=== PATIENT | female | born 1990 | race Caucasian/White ===

== ENCOUNTER 2017-10-01 17:35 | Inpatient (IN) ==
[2017-10-01] MEDS ORDERED: Ondansetron 4 MG/2 ML VIAL IVP PRN (19:23)
[2017-10-01] MEDS ORDERED: Naloxone 0.4 MG/ML INJ IVP PRN (19:23)
[2017-10-01] MEDS ORDERED: *HR* Meperidine 25 MG/ML SYRINGE IVP PRN (19:27)
[2017-10-01] MEDS ORDERED: 0.9 % Sodium Chloride 1,000 ML IVC SCH (19:30)
--- NOTE | 2017-10-01 19:33 | Internal Med History&Physical ---
<Willard Walton H - Last Filed: 10/01/17 20:09> Date of Encounter: 10/01/17 Internal Medicine - H&P: HPI History of present illness: Ms. Rossi is a 27 year old female Internal Medicine - H&P: Meds No Known Home Drugs 10/01/17 [History] 3 Allergy/AdvReac Type Severity Reaction Status Date / Time Penicillins [PCN] Allergy Rash Verified 10/01/17 13:06 All Systems PM: A 10-system review of systems was performed and is negative for pertinent findings except as documented above in the HPI. - Attending Attestation 1. Acute pancreatitis Lipase is normal, CT scan shows possible cholelithiasis and possible acute pancreatitis, possibly some enteritis which was no reported but the patient is not having any diarrhea at the moment Nothing by mouth, IV fluids, meperidine IV as needed Order MRCP to consider possible mass Lipid Panel Recheck lipase in the morning 2. Intractable nausea and vomiting secondary to pancreatitis 3. Dehydration secondary to nausea and vomiting 4. Leukocytosis, nonspecific likely related to acute pancreatitis 5. Mild hyponatremia likely related to vomiting Protonix IV for GI prophylaxis and subcutaneous heparin for DVT prophylaxis. The patient will be admitted as inpatient, expected to stay more than 2 midnights. Full code. Time spent on this admission 40 minutes. I have personally performed a face to face evaluation on this patient. I have reviewed and agree with the care plan. History and Exam by me shows: <RandallColin J - Last Filed: 10/01/17 21:23> Date of Encounter: 10/01/17 Time of Encounter: 19:30 Assessment and Plan (1) Pancreatitis Current visit: Yes Status: Acute 3 history of intractable nausea and vomiting and abdominal pain. CT scan reveals possible cholelithiasis and inflammation of the pancreatic head concerning for. Additionally some enteritis is noted the patient is denying any diarrhea. -IV fluid -Strict nothing by mouth -Demerol for pain -MRI, MRCP due to inflammation of the pancreatic head without elevation of lipase -Repeat lipase in the morning; call generation engineering technologist workers compensation claims specialist if lipase elevated to do MRI/MRCP first thing in the morning -Lipid panel now -Recheck lipase in the morning -Antiemetics -CBC D, CMP in the a.m. -Continuous tele Qualifiers: Chronicity: acute Pancreatitis type: unspecified pancreatitis type Acute pancreatitis complication: unspecified Qualified Code(s): K85.90 - Acute pancreatitis without necrosis or infection, unspecified (2) Abdominal pain Current visit: Yes Status: Acute In the setting of acute pancreatitis. Abdomen does not appear acute to examination or per CT. See plan above Qualifiers: Abdominal location: right upper quadrant Qualified Code(s): R10.11 - Right upper quadrant pain (3) Cholelithiasis Current visit: Yes Status: Acute Cholelithiasis without obvious obstruction. MRI and MRCP for further evaluation Qualifiers: Cholelithiasis location: gallbladder Cholecystitis presence: without cholecystitis Biliary obstruction: without biliary obstruction Qualified Code(s): K80.20 - Calculus of gallbladder without cholecystitis without obstruction (4) Intractable nausea and vomiting Current visit: Yes Status: Acute Intractable nausea and vomiting secondary to pancreatitis -IVF -Anti-emetics Qualifiers: Vomiting type: unspecified Qualified Code(s): R11.2 - Nausea with vomiting , unspecified (5) Dehydration Current visit: Yes Status: Acute In the setting of pancreatitis. See plan above (6) DVT prophylaxis Current visit: Yes Status: Acute Heparin 5000 units SC BID Internal Medicine - H&P: HPI Chief complaint: N/V with abdominal pain Admitted From: Home Plans for Post Hospital Care: Home History of present illness: Ms. Rossi is a 27 year old female with no prior past medical history presents to [facility] today from [facility] with intractable nausea and vomiting and abdominal pain for the last 3 days. She is reporting RUQ abdominal pain that feels sharp and is 8/10. The abdominal pain has only improved slightly over the last few days. She states that she has had a decrease in oral intake and has only been able to drink apple juice. Her urinary output has also decreased. She denies any fevers, chills, chest pain, constipation or shortness of breath. CT scan reveals inflammation of the pancreatic head. Past Med Surg Social Fam HX - Past Medical History Medical history: no medical history Psychiatric history: no psych history - Past Surgical History Surgical History: no surgical history - Social History Smoking Status: Never smoker Smokeless Tobacco Status: No Alcohol use: none Drug use: none - Additional Family History Additional family history: Noncontributory All Systems PM: A 10-system review of systems was performed and is negative for pertinent findings except as documented above in the HPI. - Constitutional Constitutional: as per HPI - EENT Eyes: no change in vision, no discharge, no pain, no photophobia Ears: no ear discharge, no ear pain, no tinnitus Nose, mouth and throat: no dysphagia, no nasal discharge, no neck pain, no sore throat - Cardiovascular Cardiovascular ROS IM: no chest pain, no diaphoresis, no dyspnea, no lightheadedness, no palpitations, no syncope - Respiratory Respiratory: no cough, no dyspnea, no wheezing, no excessive phlegm production - Gastrointestinal Gastrointestinal: as per HPI - Genitourinary Genitourinary: no change in urinary stream, no dysuria, no flank pain, no hematuria - Musculoskeletal Musculoskeletal ROS IM: no numbness, no tingling - Integumentary Integumentary IM: no rash, no unusual bruising - Neurological Neurological ROS: no confusion, no convulsions, no focal weakness, no numbness, no tingling, no tremor(s) - Head Head exam: Present: atraumatic, normocephalic - Eye Eye exam: Present: PERRL, conjuntiva pink, sclera anicteric Pupils: Present: PERRL - Neck Neck exam general surgery: Present: supple, trachea midline. Absent: lymphadenopathy - Respiratory Respiratory exam: Present: CTAB. Absent: accessory muscle use, rales, rhonchi, wheezes - Cardiovascular Cardiovascular exam: Present: RRR, +S1, +S2. Absent: diastolic murmur, gallop, rubs, systolic murmur - GI/Abdominal GI/Abdominal exam: Present: normal bowel sounds, soft, tenderness (RUQ, EPIGASTRIC), no peritoneal signs. Absent: distended - Extremities Exam Extremities exam: Present: warm, radial pulses palpable and symmetrical. Absent : calf tenderness, cyanotic, pedal edema - Neurological Exam Neurological exam: Present: oriented X3. Absent: facial droop, speech deficit - Skin Skin exam: Present: dry, intact Internal Med - H&P Results - Diagnostic Studies CT scan - abdomen Status: image reviewed by me Additional comments: Lower Chest: Clear lungs. Organs: Cholelithiasis. Liver, adrenals and spleen are normal. Moderate to severe stranding surrounding the pancreatic head and tracking inferiorly into the mesentery. No drainable fluid collection. GI/Bowel: No evidence of bowel obstruction. Normal appendix. Small hiatal hernia. Pelvis: Bladder and reproductive organs are unremarkable. Peritoneum/Retroperitoneum: Duplicated IVC. No evidence of AAA or lymphadenopathy. Bones/Soft Tissues: No suspicious osseous lesions.
[2017-10-01 21:35] LABS: Chol/HDL Ratio 3.5 (0-4.9)
[2017-10-01] MEDS: *HR* Meperidine 25 MG/ML SYRINGE IVP PRN (23:17)
[2017-10-01] MEDS: 0.9 % Sodium Chloride 1,000 ML IVC SCH (23:17)
[2017-10-02] MEDS: 0.9 % Sodium Chloride 1,000 ML IVC SCH ×3 (04:26→20:33)
[2017-10-02] MEDS: *HR* Meperidine 25 MG/ML SYRINGE IVP PRN (04:46)
[2017-10-02 07:42] LABS: Alanine Aminotransferase 35 Units/L (7-52); Albumin 3.2 g/dL (3.5-5.7); Albumin/Globulin Ratio 1.3 (1.1-2.2); Alkaline Phosphatase 80 Units/L (34-104); Aspartate Amino Transferase 9 Units/L (13-39); BUN/Creatinine Ratio 13 (6-26); Bilirubin,Total 0.6 mg/dL (0.3-1.0); Blood Urea Nitrogen 7 mg/dL (6-20); Calcium 8.1 mg/dL (8.6-10.3); Carbon Dioxide 24 mEq/L (23-29); Chloride 108 mEq/L (98-107); Globulin 2.4 g/dL (2.4-3.5); Glucose 90 mg/dL (70-105); Osmolality,Calculated 282 (280-300); Potassium 3.6 mEq/L (3.5-5.1); Sodium 137 mEq/L (136-145); Total Protein 5.6 g/dL (6.4-8.9); eGFR For African Americans > 60 (> 60); eGFR For Non-African Americans > 60 (> 60)
[2017-10-02 07:52] LABS: Basophils # 0.1 K/mcL (0.0-0.2); Basophils % 0.4 %; Eosinophils # 0.3 K/mcL (0.0-0.6); Eosinophils % 2.3 %; Hematocrit 35.3 % (35.3-44.9); Hemoglobin 11.4 g/dL (11.5-15.4); Immature Granulocytes % 0.4 % (0-4); Lymphocytes # 2.1 K/mcL (0.6-4.6); Lymphocytes % 18.1 %; Mean Corpuscular HGB Conc 32.3 g/dL (31.6-35.5); Mean Corpuscular Hemoglobin 30.6 pg (28.0-33.3); Mean Corpuscular Volume 94.9 fL (83.0-100.0); Mean Platelet Volume 9.4 fL (9.4-12.4); Monocytes # 0.9 K/mcL (0.0-1.3); Monocytes % 8.2 %; Platelet Count 256 K/mcL (140-400); Red Blood Count 3.72 M/mcL (3.82-4.97); Red Cell Distribution Width 13.3 % (11.5-14.5); Segmented Neutrophils % 70.6 %
[2017-10-02] MEDS: *HR* OxyCODONE Immed Rel 5 MG TABLET PO PRN ×3 (08:50→19:32)
--- NOTE | 2017-10-02 13:47 | Internal Med Progress Note ---
Date of Encounter: 10/02/17 Time of Encounter: 08:00 - Assessment and plan (1) Acute pancreatitis Current Visit: Yes Status: Acute Assessment and plan: Mostly viral pathology FLP - normal However CT of Abd showed cholelithiasis / no ductal dilation Normal LFT's will check U/S of RUQ no need of MRI at this stage started her on full liquid diet PO analgesics PRN Symptomatic and supportive care Qualifiers: Qualified Code(s): K85.90 - Acute pancreatitis without necrosis or infection , unspecified (2) Cholelithiasis Current Visit: Yes Status: Acute Assessment and plan: will get U/S of RUQ Qualifiers: Qualified Code(s): K80.20 - Calculus of gallbladder without cholecystitis without obstruction (3) Dehydration Current Visit: Yes Status: Acute Assessment and plan: Improved cont IV hydration (4) Intractable nausea and vomiting Current Visit: Yes Status: Acute Assessment and plan: on Zofran Qualifiers: Vomiting type: unspecified Qualified Code(s): R11.2 - Nausea with vomiting , unspecified - Subjective Interval history: Ms. Rossi is a 27 year old female with no prior past medical history presents to [facility] today from [facility] with intractable nausea and vomiting and abdominal pain for the last 3 days. She is reporting RUQ abdominal pain that feels sharp and is 8/10. The abdominal pain has only improved slightly over the last few days. She states that she has had a decrease in oral intake and has only been able to drink apple juice. Her urinary output has also decreased. She denies any fevers, chills, chest pain, constipation or shortness of breath. CT scan reveals inflammation of the pancreatic head. Pt states she is feeling little better today. Denied any CP / SOB. Still having mild abdominal discomfort. No N/ V - Constitutional Vitals: Temp Pulse Resp BP Pulse Ox 98.2 F 85 14 104/65 96 10/02/17 10:30 10/02/17 10:30 10/02/17 10:30 10/02/17 10:30 10/02/17 10:30 General appearance: Present: A&O X 3, no acute distress, answers questions appropriately - Head Head exam: Present: atraumatic, normal inspection - Neck Neck exam general surgery: Present: supple - Respiratory Respiratory exam: Present: decreased breath sounds. Absent: rales, respiratory distress, rhonchi, wheezes - Cardiovascular Cardiovascular exam: Present: RRR, +S1, +S2. Absent: tachycardia - GI/Abdominal GI/Abdominal exam: Present: normal bowel sounds, soft, tenderness (mild discomfort @ jayden umbelical region). Absent: rebound, rigid - Extremities Exam Extremities exam: Absent: calf tenderness, pedal edema, tenderness - Back Exam Back exam: Absent: CVA tenderness (L), CVA tenderness (R) - Neurological Exam Neurological exam: Present: alert, oriented X3 - Psychiatric Psychiatric exam: Present: normal affect, normal mood Internal Medicine: Result - Labs CBC & Chem 7: 10/02/17 06:24 10/02/17 06:24 Labs: Short CBC 10/02/17 Range/Units 06:24 WBC 11.4 H (4.3-11.1) K/mcL Hgb 11.4 L D (11.5-15.4) g/dL Hct 35.3 (35.3-44.9) % Plt Count 256 (140-400) K/mcL Neutrophils # 8.0 (1.6-8.9) K/mcL BMP 10/02/17 06:24 Sodium 137 Potassium 3.6 Chloride 108 H Carbon Dioxide 24 BUN 7 Creatinine 0.55 L Glucose 90 Calcium 8.1 L Liver Function 10/02/17 Range/Units 06:24 Total Bilirubin 0.6 (0.3-1.0) mg/dL AST 9 L (13-39) Units/L ALT 35 (7-52) Units/L Alkaline Phosphatase 80 (34-104) Units/L Albumin 3.2 L (3.5-5.7) g/dL Consult Discharge Plan - Plan Referrals: Shanice Krishnamurthy, GOVERNMENT EMPLOYEE [Primary Care Provider] -
[2017-10-03] MEDS: *HR* OxyCODONE Immed Rel 5 MG TABLET PO PRN ×3 (04:41→21:19)
[2017-10-03 04:49] LABS: Basophils % 0.3 %; Eosinophils # 0.3 K/mcL (0.0-0.6); Eosinophils % 2.7 %; Hematocrit 34.8 % (35.3-44.9); Hemoglobin 11.5 g/dL (11.5-15.4); Immature Granulocytes % 0.2 % (0-4); Lymphocytes # 2.6 K/mcL (0.6-4.6); Lymphocytes % 28.3 %; Mean Corpuscular Hemoglobin 31.1 pg (28.0-33.3); Mean Corpuscular Volume 94.1 fL (83.0-100.0); Mean Platelet Volume 9.1 fL (9.4-12.4); Monocytes # 0.8 K/mcL (0.0-1.3); Monocytes % 8.5 %; Neutrophils # 5.5 K/mcL (1.6-8.9); Platelet Count 265 K/mcL (140-400); Red Cell Distribution Width 13.4 % (11.5-14.5)
[2017-10-03] MEDS: 0.9 % Sodium Chloride 1,000 ML IVC SCH ×2 (06:57→21:19)
[2017-10-03 09:47] LABS: Alanine Aminotransferase 29 Units/L (7-52); Albumin 3.2 g/dL (3.5-5.7); Albumin/Globulin Ratio 1.3 (1.1-2.2); Alkaline Phosphatase 87 Units/L (34-104); Aspartate Amino Transferase 11 Units/L (13-39); BUN/Creatinine Ratio 7 (6-26); Bilirubin,Total 0.4 mg/dL (0.3-1.0); Blood Urea Nitrogen 4 mg/dL (6-20); Calcium 8.3 mg/dL (8.6-10.3); Carbon Dioxide 26 mEq/L (23-29); Chloride 108 mEq/L (98-107); Globulin 2.4 g/dL (2.4-3.5); Glucose 106 mg/dL (70-105); Lipase 8 Units/L (11-82); Magnesium 1.8 mg/dL (1.6-2.6); Osmolality,Calculated 283 (280-300); Potassium 3.7 mEq/L (3.5-5.1); Sodium 138 mEq/L (136-145); Total Protein 5.6 g/dL (6.4-8.9); eGFR For African Americans > 60 (> 60); eGFR For Non-African Americans > 60 (> 60)
--- NOTE | 2017-10-03 10:27 | General Surgery Consult Note ---
<Ericka Waggoner - Last Filed: 10/03/17 11:51> Date of Encounter: 10/03/17 Time of Encounter: 10:27 Assessment and Plan (1) Cholelithiasis Current Visit: Yes Status: Acute Physical assessment and imaging consistent with cholelithiasis with acute cholecystitis. The patient is recommended to undergo a laparoscopic cholecystectomy with intraoperative choliangiogram. Risks, benefits, and recommendations were reviewed with patient and she is agreeable to proceed. A signed consent has in place on the hard chart. We will plan for surgical intervention in the next 24 to 48 hours. Plan: NPO IV fluids continued discomfort management Qualifiers: Cholelithiasis location: gallbladder Cholecystitis presence: with cholecystitis Cholecystitis acuity: acute Biliary obstruction: without biliary obstruction Qualified Code(s): K80.00 - Calculus of gallbladder with acute cholecystitis without obstruction (2) Intractable nausea and vomiting Current Visit: Yes Status: Acute PRN antiemetics Qualifiers: Vomiting type: unspecified Qualified Code(s): R11.2 - Nausea with vomiting , unspecified (3) Acute pancreatitis Current Visit: Yes Status: Acute See plan for #1 Qualifiers: Pancreatitis type: unspecified pancreatitis type Acute pancreatitis complication: unspecified Qualified Code(s): K85.90 - Acute pancreatitis without necrosis or infection, unspecified History of Present Illness Consult date: 10/03/17 (Dr. Goran Alexander) Reason for consult: gallstones Requesting physician: Jen Andrews History of present illness: Ms. 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 Her surgical history include a tubal ligation. She denies smoking history, alcohol use, drug use, and is not work outside the home. She presented to [facility] as a transfer from [facility] with intractable nausea and vomiting for the last [address] scan revealed inflammation of the pancreatic head. She had mild leukocytosis at 11.4 and her lipase was slightly elevated 8. She had a right upper quadrant ultrasound which revealed sludge and cholelithiasis. The pancreas was mildly prominent and edematous consistent with pancreatitis that was seen on the CT. Presently, she denies fevers, chills, headache, dizziness, chest pain, shortness of breath, black, bloody, or tarry stool, changes in bowel habits, symptoms of Gerd, urinary signs or symptoms, or generalized weakness. She endorses right upper quadrant discomfort that is aggravated by eating or sitting up. She rates this discomfort as a 6 out of 10 and feels dull. She states it is relieved by laying on her right side. She reports nausea that has continued, but she has not vomited as she is not eating. Surgery has been asked to evaluate this patient for evaluation and recommendations regarding acute cholecystitis. Past Med Surg Social Fam HX - Past Medical History Source: patient Medical history: no medical history Psychiatric history: no psych history - Past Surgical History Surgical History: other (Tubal ligation) - Social History Smoking Status: Never smoker Smokeless Tobacco Status: No Alcohol use: none Drug use: none Occupational status: unemployed Current living situation: Home - Independent Activity Level: Independent ambulation Recent Out of Country Travel Within the Last 8 Weeks: No Exposure or Possible Exposure to Illness During Travel: No - Family History Mother Living Status: Still Living Hx Family Neurologic Disorders: Yes (Seziures) Medications and Allergies No Known Home Drugs 10/01/17 [History] 3 Allergy/AdvReac Type Severity Reaction Status Date / Time Penicillins [PCN] Allergy Rash Verified 10/02/17 12:08 Review of Systems All systems PM: reviewed and no additional remarkable complaints except as stated All systems PM: A 10-system review of systems was performed and is negative for pertinent findings except as documented above in the HPI. General Surgery Exam Initial Vital Signs Temp Pulse Resp BP Pulse Ox 97.5 F L 94 16 123/80 98 10/01/17 20:14 10/01/17 20:14 10/01/17 20:14 10/01/17 20:14 10/01/17 20:14 - General physical appearance no distress, no pain - ENT poor long term, atraumatic, normocephalic - Neck trachea midline, no venous distension - Respiratory normal expansion, normal respiratory effort, clear to percussion, clear to auscultation - Cardiovascular Cardiovascular exam: Present: RRR, murmurs - Abdomen Abdomen general surgery: Present: bowel sounds present, soft, tender Abdominal Tenderness: Present: RUQ - Integumentary Integumentary general surgery: Present: warm and dry, no abnormal pigmentation - Neurologic Present: CN 2-12 grossly intact, normal coordination, normal sensation - Musculoskeletal Present: normal gait, normal posture - Psychiatric Psychiatric general surgery: Present: A&Ox3, appropriate, oriented to person, oriented to place, oriented to time, speech is normal, memory intact Exam Initial Vital Signs Temp Pulse Resp BP Pulse Ox 97.5 F L 94 16 123/80 98 10/01/17 20:14 10/01/17 20:14 10/01/17 20:14 10/01/17 20:14 10/01/17 20:14 Results - Labs 10/03/17 04:22 10/03/17 04:22 Abnormal lab results RBC 3.70 M/mcL (3.82-4.97) L 10/03/17 04:22 Hct 34.8 % (35.3-44.9) L 10/03/17 04:22 MPV 9.1 fL (9.4-12.4) L 10/03/17 04:22 Chloride 108 mEq/L (98-107) H 10/03/17 04:22 BUN 4 mg/dL (6-20) L 10/03/17 04:22 Creatinine 0.54 mg/dL (0.60-1.20) L 10/03/17 04:22 Glucose 106 mg/dL (70-105) H 10/03/17 04:22 POC Glucose 99 (58-89) H 10/02/17 05:29 Calcium 8.3 mg/dL (8.6-10.3) L 10/03/17 04:22 AST 11 Units/L (13-39) L 10/03/17 04:22 Serum Total Protein 5.6 g/dL (6.4-8.9) L 10/03/17 04:22 Albumin 3.2 g/dL (3.5-5.7) L 10/03/17 04:22 HDL Cholesterol 33 mg/dL (40-59) L 10/01/17 21:14 Lipase 8 Units/L (11-82) L 10/03/17 04:22 Diabetes panel 10/03/17 Range/Units 04:22 Sodium 138 (136-145) mEq/L Potassium 3.7 (3.5-5.1) mEq/L Chloride 108 H (98-107) mEq/L Carbon Dioxide 26 (23-29) mEq/L BUN 4 L (6-20) mg/dL Creatinine 0.54 L (0.60-1.20) mg/dL Glucose 106 H (70-105) mg/dL Calcium 8.3 L (8.6-10.3) mg/dL AST 11 L (13-39) Units/L ALT 29 (7-52) Units/L Alkaline Phosphatase 87 (34-104) Units/L Albumin 3.2 L (3.5-5.7) g/dL Calcium panel 10/03/17 Range/Units 04:22 Calcium 8.3 L (8.6-10.3) mg/dL Albumin 3.2 L (3.5-5.7) g/dL Pituitary panel 10/03/17 Range/Units 04:22 Sodium 138 (136-145) mEq/L Potassium 3.7 (3.5-5.1) mEq/L Chloride 108 H (98-107) mEq/L Carbon Dioxide 26 (23-29) mEq/L BUN 4 L (6-20) mg/dL Creatinine 0.54 L (0.60-1.20) mg/dL Glucose 106 H (70-105) mg/dL Calcium 8.3 L (8.6-10.3) mg/dL Adrenal panel 10/03/17 Range/Units 04:22 Sodium 138 (136-145) mEq/L Potassium 3.7 (3.5-5.1) mEq/L Chloride 108 H (98-107) mEq/L Carbon Dioxide 26 (23-29) mEq/L BUN 4 L (6-20) mg/dL Creatinine 0.54 L (0.60-1.20) mg/dL Glucose 106 H (70-105) mg/dL Calcium 8.3 L (8.6-10.3) mg/dL Total Bilirubin 0.4 (0.3-1.0) mg/dL AST 11 L (13-39) Units/L ALT 29 (7-52) Units/L Alkaline Phosphatase 87 (34-104) Units/L Albumin 3.2 L (3.5-5.7) g/dL All other labs normal. - Imaging Additional studies: Abdomen Ultrasound 10/03/17 08:00 IMPRESSION: 1. Moderate amount of layering echogenicity within the gallbladder representing combination of sludge and stones. 2. Visualized pancreas appears mildly prominent and edematous consistent with pancreatitis as seen on CT examination. D/ / Jerome Rojas MD / Jerome Rojas MD Interpreting Provider: Jerome Rojas MD Consult Discharge Plan - Plan Referrals: Shanice Krishnamurthy, AT HOME INDEPENDENT CALL CENTER AGENT [Primary Care Provider] - <CatherineGoran T - Last Filed: 10/03/17 19:33> Date of Encounter: 10/03/17 Review of Systems All systems PM: A 10-system review of systems was performed and is negative for pertinent findings except as documented above in the HPI. General Surgery Exam Initial Vital Signs Temp Pulse Resp BP Pulse Ox 97.5 F L 94 16 123/80 98 10/01/17 20:14 10/01/17 20:14 10/01/17 20:14 10/01/17 20:14 10/01/17 20:14 Exam Initial Vital Signs Temp Pulse Resp BP Pulse Ox 97.5 F L 94 16 123/80 98 10/01/17 20:14 10/01/17 20:14 10/01/17 20:14 10/01/17 20:14 10/01/17 20:14 Results - Labs 10/03/17 04:22 10/03/17 04:22 Abnormal lab results RBC 3.70 M/mcL (3.82-4.97) L 10/03/17 04:22 Hct 34.8 % (35.3-44.9) L 10/03/17 04:22 MPV 9.1 fL (9.4-12.4) L 10/03/17 04:22 Chloride 108 mEq/L (98-107) H 10/03/17 04:22 BUN 4 mg/dL (6-20) L 10/03/17 04:22 Creatinine 0.54 mg/dL (0.60-1.20) L 10/03/17 04:22 Glucose 106 mg/dL (70-105) H 10/03/17 04:22 POC Glucose 99 (58-89) H 10/02/17 05:29 Calcium 8.3 mg/dL (8.6-10.3) L 10/03/17 04:22 AST 11 Units/L (13-39) L 10/03/17 04:22 Serum Total Protein 5.6 g/dL (6.4-8.9) L 10/03/17 04:22 Albumin 3.2 g/dL (3.5-5.7) L 10/03/17 04:22 HDL Cholesterol 33 mg/dL (40-59) L 10/01/17 21:14 Lipase 8 Units/L (11-82) L 10/03/17 04:22 Diabetes panel 10/03/17 Range/Units 04:22 Sodium 138 (136-145) mEq/L Potassium 3.7 (3.5-5.1) mEq/L Chloride 108 H (98-107) mEq/L Carbon Dioxide 26 (23-29) mEq/L BUN 4 L (6-20) mg/dL Creatinine 0.54 L (0.60-1.20) mg/dL Glucose 106 H (70-105) mg/dL Calcium 8.3 L (8.6-10.3) mg/dL AST 11 L (13-39) Units/L ALT 29 (7-52) Units/L Alkaline Phosphatase 87 (34-104) Units/L Albumin 3.2 L (3.5-5.7) g/dL Calcium panel 10/03/17 Range/Units 04:22 Calcium 8.3 L (8.6-10.3) mg/dL Albumin 3.2 L (3.5-5.7) g/dL Pituitary panel 10/03/17 Range/Units 04:22 Sodium 138 (136-145) mEq/L Potassium 3.7 (3.5-5.1) mEq/L Chloride 108 H (98-107) mEq/L Carbon Dioxide 26 (23-29) mEq/L BUN 4 L (6-20) mg/dL Creatinine 0.54 L (0.60-1.20) mg/dL Glucose 106 H (70-105) mg/dL Calcium 8.3 L (8.6-10.3) mg/dL Adrenal panel 10/03/17 Range/Units 04:22 Sodium 138 (136-145) mEq/L Potassium 3.7 (3.5-5.1) mEq/L Chloride 108 H (98-107) mEq/L Carbon Dioxide 26 (23-29) mEq/L BUN 4 L (6-20) mg/dL Creatinine 0.54 L (0.60-1.20) mg/dL Glucose 106 H (70-105) mg/dL Calcium 8.3 L (8.6-10.3) mg/dL Total Bilirubin 0.4 (0.3-1.0) mg/dL AST 11 L (13-39) Units/L ALT 29 (7-52) Units/L Alkaline Phosphatase 87 (34-104) Units/L Albumin 3.2 L (3.5-5.7) g/dL All other labs normal. - Attending Attestation I examined this patient and my medical decision-making was reviewed with the Resident Physician. I agree with the documented findings, disposition and treatment plan as described except to the extent set forth below. The patient was seen and evaluated and findings are discussed with the resident. I personally reviewed her CAT scan. She has a small amount of ascites around the liver. There does not appear to be any evidence of recurrent cancer. She has a very large incisional hernia with loss of domain. There is no evidence of obstruction. I would not recommend surgical intervention at this time. We recommend evaluation of her ascites to see if this is related to her cirrhosis. I would also get a CEA level Goran Alexander MD FACS
--- NOTE | 2017-10-03 12:15 | Internal Med Progress Note ---
Date of Encounter: 10/03/17 Time of Encounter: 09:00 - Assessment and plan (1) Acute pancreatitis Current Visit: Yes Status: Acute Assessment and plan: Mostly viral pathology vs cholelithiasis induced FLP - normal However CT of Abd showed cholelithiasis / no ductal dilation Normal LFT's Reviewed U/S of RUQ showed multiple cholelithiasis + sludge Consulted surgery for further eval no need of MRI at this stage Placed her back on NPI IV hydration PO analgesics PRN Symptomatic and supportive care Qualifiers: Pancreatitis type: unspecified pancreatitis type Acute pancreatitis complication: unspecified Qualified Code(s): K85.90 - Acute pancreatitis without necrosis or infection, unspecified (2) Cholelithiasis Current Visit: Yes Status: Acute Assessment and plan: With acute cholecystitis reviewed U/S of Abd consulted surgery for further eval May need to go for Lap Choecystectomy Possible cholnagiogram during surgery put her back on NPO Qualifiers: Cholelithiasis location: gallbladder Cholecystitis presence: with cholecystitis Cholecystitis acuity: acute Biliary obstruction: without biliary obstruction Qualified Code(s): K80.00 - Calculus of gallbladder with acute cholecystitis without obstruction (3) Dehydration Current Visit: Yes Status: Acute Assessment and plan: Improved cont IV hydration (4) Intractable nausea and vomiting Current Visit: Yes Status: Acute Assessment and plan: on Zofran Qualifiers: Vomiting type: unspecified Qualified Code(s): R11.2 - Nausea with vomiting , unspecified - Subjective Interval history: Ms. Rossi is a 27 year old female with no prior past medical history presents to [facility] from [facility] with intractable nausea and vomiting and abdominal pain for the last 3 days. She is reporting RUQ abdominal pain that feels sharp and is 8/10. The abdominal pain has only improved slightly over the last few days. She states that she has had a decrease in oral intake and has only been able to drink apple juice. Her urinary output has also decreased. She denies any fevers, chills, chest pain, constipation or shortness of breath. CT scan reveals inflammation of the pancreatic head. Pt states she is feeling little better today. Denied any CP / SOB. Tolerated full liquid diet well y/d. Still having mild abdominal discomfort. No N/ V - Constitutional Vitals: Temp Pulse Resp BP Pulse Ox 97.6 F 89 16 110/73 98 10/03/17 11:16 10/03/17 11:16 10/03/17 11:16 10/03/17 11:16 10/03/17 11:16 General appearance: Present: A&O X 3, no acute distress, answers questions appropriately - Head Head exam: Present: atraumatic, normal inspection - Neck Neck exam general surgery: Present: supple - Respiratory Respiratory exam: Present: decreased breath sounds. Absent: rales, respiratory distress, rhonchi, wheezes - Cardiovascular Cardiovascular exam: Present: RRR, +S1, +S2. Absent: tachycardia - GI/Abdominal GI/Abdominal exam: Present: normal bowel sounds, soft, tenderness (mild discomfort jayden umbelical region and RUQ). Absent: distended, rebound, rigid - Extremities Exam Extremities exam: Absent: calf tenderness, pedal edema, tenderness - Back Exam Back exam: Absent: CVA tenderness (L), CVA tenderness (R) - Psychiatric Psychiatric exam: Present: normal affect, normal mood Internal Medicine: Result - Labs CBC & Chem 7: 10/03/17 04:22 10/03/17 04:22 Labs: Short CBC 10/03/17 Range/Units 04:22 WBC 9.2 (4.3-11.1) K/mcL Hgb 11.5 (11.5-15.4) g/dL Hct 34.8 L (35.3-44.9) % Plt Count 265 (140-400) K/mcL Neutrophils # 5.5 (1.6-8.9) K/mcL BMP 10/03/17 04:22 Sodium 138 Potassium 3.7 Chloride 108 H Carbon Dioxide 26 BUN 4 L Creatinine 0.54 L Glucose 106 H Calcium 8.3 L Liver Function 10/03/17 Range/Units 04:22 Total Bilirubin 0.4 (0.3-1.0) mg/dL AST 11 L (13-39) Units/L ALT 29 (7-52) Units/L Alkaline Phosphatase 87 (34-104) Units/L Albumin 3.2 L (3.5-5.7) g/dL - Impressions Impressions Abdomen Ultrasound 10/03/17 08:00 IMPRESSION: 1. Moderate amount of layering echogenicity within the gallbladder representing combination of sludge and stones. 2. Visualized pancreas appears mildly prominent and edematous consistent with pancreatitis as seen on CT examination. D/ / Jerome Rojas MD / Jerome Rojas MD Interpreting Provider: Jerome Rojas MD Consult Discharge Plan - Plan Referrals: Shanice Krishnamurthy, TIRE MOLD ENGRAVER [Primary Care Provider] -
--- NOTE | 2017-10-03 16:03 | Anesthesia Evaluation PreOp ---
Date of Encounter: 10/03/17 Time of Encounter: 16:00 - Past History Planned Operation: Laparoscopic Cholecystectomy Cardiac History: Denies any Significant Hx Pulmonary History: Denies Any Significant HX FUNERAL GREETER History: Denies Any Significant HX Other Medical History: Denies Any Significant HX Anesthesia History: No Prior Anesthetic Complications, Past Anesthesia Test: Negative (10/01/2017) Alcohol Use: none Drug use: none Medications and Allergies No Known Home Drugs 10/01/17 [History] 3 Allergy/AdvReac Type Severity Reaction Status Date / Time Penicillins [PCN] Allergy Rash Verified 10/02/17 12:08 - Meds/Allergy Pre-op Review Medications Reviewed: Yes Allergies Reviewed: Yes Beta Blockers on Current Med List: No Anesthesia Results - Labs 10/03/17 04:22 10/03/17 04:22 Laboratory Tests 10/01/17 13:20 Urine Test Negative - Imaging EKG: report reviewed (04/14/2015 SINUS RHYTHM NONSPECIFIC T-WAVE ABNORMALITY) Anesthesia Exam Vital Signs/O2 Sat, Most Current Temp Pulse Resp BP Pulse Ox 98.1 F 91 18 104/67 98 10/03/17 14:44 10/03/17 14:44 10/03/17 14:44 10/03/17 14:44 10/03/17 14:44 Height: 5'3''/1.6 m Weight: 140 lbs/63.9 kg NPO (# of Hours): 8 Pain Scale: 0 - HEENT Pupil (Motor): EOMI Mallampati: II Teeth: Normal, Missing Oral Opening: Greater than 3 - FUNERAL GREETER LOC: Oriented FUNERAL GREETER Motor: Normal RUE, Normal LUE, Normal RLE, Normal LLE, Normal Face FUNERAL GREETER Sensory: Normal: RUE, LUE, RLE, LLE, Face - Cardiac Rhythm: Regular Murmur: None - Pulmonary Breath Sounds: bilateral Clear Respiratory Effort: Symmetrical Anesthesia Assess/Plan ASA Score: 1 Modified Dennis Scale for Level of Consciousness: Cooperative, oriented, and tranquil Anesthetic Plan: General Monitoring Plan: Standard Monitors Recovery Plan: PACU
[2017-10-03] MEDS ORDERED: CefOXitin 1,000 MG VIAL ONE (18:04)
[2017-10-03] MEDS ORDERED: Acetaminophen IV 1,000 MG/100 ML INFUS..BTL ONE (18:33)
[2017-10-03] MEDS ORDERED: Ketamine *HR* 500 MG/10 ML MDV ONE (18:52)
[2017-10-03] MEDS ORDERED: *HR* FentaNYL (PF) 100 MCG/2 ML VIAL ONE (18:52)
[2017-10-03] MEDS ORDERED: *HR* Rocuronium Bromide 50 MG/5 ML VIAL ONE (18:52)
[2017-10-03] MEDS ORDERED: *HR* Midazolam HCl 2 MG/2 ML VIAL ONE (18:52)
[2017-10-03] MEDS ORDERED: *HR* Propofol 200 MG/20 ML VIAL IVP ONE (18:52)
[2017-10-03] MEDS ORDERED: Ketorolac 30 MG/ML VIAL ONE ×2 (18:52)
[2017-10-03] MEDS ORDERED: Dexamethasone 4 MG/ML VIAL ONE (18:52)
[2017-10-03] MEDS ORDERED: CefOXitin 2,000 MG VIAL ONE (18:52)
[2017-10-03] MEDS ORDERED: Ondansetron 4 MG/2 ML VIAL ONE (18:52)
[2017-10-03] MEDS ORDERED: cefOXitin 2,000 MG in Water for inj. (sterile) 10 ML IVP ONE (18:52)
[2017-10-03] MEDS ORDERED: *HR* Meperidine 25 MG/ML SYRINGE IVP PRN (18:54)
[2017-10-03] MEDS ORDERED: Ondansetron 4 MG/2 ML VIAL IVP PRN ×2 (18:54→20:45)
[2017-10-03] MEDS ORDERED: MORPHINE SUL Oral CONC 10 MG/0.5 ML ORAL.SYG SL PRN (18:54)
[2017-10-03] MEDS ORDERED: *HR* Promethazine 25 MG/ML VIAL IVP PRN (18:54)
[2017-10-03] MEDS ORDERED: Neostigmine Methylsulfate 3 MG/3 ML SYRINGE ONE (19:15)
--- NOTE | 2017-10-03 19:22 | Operative Note ---
Date of procedure: 10/03/17 Pre-op diagnosis: Gallstone pancreatitis Post-op diagnosis: same Procedure: Upper scalp cholecystectomy, cholangiogram Anesthesia: GETA Surgeon: Goran Alexander Was there an dental assistant teacher present: Yes Post Tensioning Ironworker: Patience Hudson Estimated blood loss (cc): 25 Specimen: Gallbladder and contents Condition: stable Disposition: PACU Procedure in Detail: Laparoscopic cholecystectomy and intraoperative cholangiogram Operative procedure after informed consent and appropriate patient identification timeout the patient was taken to the major operating suite and placed supine position given adequate general endotracheal anesthesia the abdomen is prepped and draped in sterile fashion utilizing ChloraPrep standard draping techniques timeout was taken patient is identified. I made a vertical midline incision below the umbilicus dissected down to level of fascia there are 2 traction stitches placed in the abdominal cavity was entered visually. A Benitez trocar was placed in the abdomen and the abdomen was insufflated to 15 mmHg pressure CO2 the gallbladder was visualized. A placement 11 port in the subxiphoid area and 2 5 mm ports in the subcostal area. Gallbladder was completely encased and acute inflammatory adhesions. These were removed with electrocautery under direct vision The gallbladder was grasped and elevated. A variety of blunt and sharp dissection techniques were used to isolate the cystic duct and cystic artery. The cystic duct was large and short The cystic artery was controlled with 2 surgical clips proximally and one distally and it was divided I placed a surgical clip on the neck the gallbladder and obtained an intraoperative cholangiogram using 10 mL of Isovue. Intraoperative cholangiogram demonstrated no flow into the duodenum. However there was retrograde flow in the pancreatic duct. For this reason I did not increase the pressure in the injection for fear of causing worsening pancreatitis.. The cholangiocatheter was removed and the cystic duct was controlled with 2 surgical clips proximally and was divided the gallbladder was removed from the gallbladder fossae using electrocautery. The gallbladder was removed through the #11 port site. I replaced the #11 port and irrigated with copious amounts of antibiotic containing solution. There is no evidence of bleeding or bile leak. All trochars were removed. Fascia was closed with 0 Vicryl skin with 2-0 and 4-0 Vicryl She tolerated the procedure well and was transferred to recovery in stable condition
--- NOTE | 2017-10-03 20:18 | Anesthesia Evaluation Post Op ---
Date of Encounter: 10/03/17 Time of Encounter: 20:17 - Vital Signs Vital Signs: Vital Signs/O2 Sat, Most Current Temp Pulse Resp BP Pulse Ox 97.4 F L 84 17 135/88 100 10/03/17 20:07 10/03/17 20:07 10/03/17 20:07 10/03/17 20:07 10/03/17 20:07 - Lungs Lungs: Clear Ascult./Percussion - Airway Airway: Non-obstructed - Cardiovascular Regular Rate - Mental Status Mental Status: Alert & Oriented, Answers Appropriately - Pain Pain Scale: 0 Pain Scale used: Numeric (1 - 10) - Nausea Vomiting Nausea Vomiting: Not Present - Hydration Hydration: Ice chips, Has not voided - Discharge PostOp Status: Transfer Patient to floor
[2017-10-03] MEDS ORDERED: Naloxone 0.4 MG/ML INJ IVP PRN (20:45)
[2017-10-04] MEDS: *HR* OxyCODONE Immed Rel 5 MG TABLET PO PRN ×5 (01:23→21:59)
[2017-10-04] MEDS: Clindamycin 900 MG/50 ML 900 MG/50 ML IV.SOLN IVPB SCH ×2 (01:23→07:51)
[2017-10-04 04:24] LABS: Basophils % 0.3 %; Hematocrit 37.2 % (35.3-44.9); Hemoglobin 12.3 g/dL (11.5-15.4); Immature Granulocytes % 0.3 % (0-4); Lymphocytes # 1.2 K/mcL (0.6-4.6); Lymphocytes % 17.2 %; Mean Corpuscular HGB Conc 33.1 g/dL (31.6-35.5); Mean Corpuscular Hemoglobin 30.9 pg (28.0-33.3); Mean Corpuscular Volume 93.5 fL (83.0-100.0); Mean Platelet Volume 8.9 fL (9.4-12.4); Monocytes # 0.4 K/mcL (0.0-1.3); Monocytes % 6.5 %; Neutrophils # 5.2 K/mcL (1.6-8.9); Platelet Count 320 K/mcL (140-400); Red Blood Count 3.98 M/mcL (3.82-4.97); Red Cell Distribution Width 13.2 % (11.5-14.5); Segmented Neutrophils % 75.7 %
[2017-10-04 04:33] LABS: Amylase 44 Units/L (29-103); Lipase 25 Units/L (11-82)
[2017-10-04 04:34] LABS: Alanine Aminotransferase 95 Units/L (7-52); Albumin 3.5 g/dL (3.5-5.7); Albumin/Globulin Ratio 1.2 (1.1-2.2); Alkaline Phosphatase 192 Units/L (34-104); Aspartate Amino Transferase 126 Units/L (13-39); BUN/Creatinine Ratio 11 (6-26); Bilirubin,Total 0.6 mg/dL (0.3-1.0); Blood Urea Nitrogen 6 mg/dL (6-20); Calcium 8.7 mg/dL (8.6-10.3); Carbon Dioxide 26 mEq/L (23-29); Chloride 104 mEq/L (98-107); Globulin 2.9 g/dL (2.4-3.5); Glucose 124 mg/dL (70-105); Osmolality,Calculated 281 (280-300); Potassium 4.3 mEq/L (3.5-5.1); Sodium 136 mEq/L (136-145); Total Protein 6.4 g/dL (6.4-8.9); eGFR For African Americans > 60 (> 60); eGFR For Non-African Americans > 60 (> 60)
[2017-10-04] MEDS: 0.9 % Sodium Chloride 1,000 ML IVC SCH ×4 (07:52→19:38)
--- NOTE | 2017-10-04 11:20 | General Surgery Progress Note ---
Date of Encounter: 10/04/17 Time of Encounter: 11:19 - Assessment and Plan (1) Acute pancreatitis Current Visit: Yes Status: Acute Date of procedure: 10/03/17 Pre-op diagnosis: Gallstone pancreatitis Post-op diagnosis: same Procedure: Upper scalp cholecystectomy, cholangiogram Anesthesia: ASHAA Surgeon: Goran Alexander Was there an assistant federal public defender present: Yes Vocational Rehabilitation Teacher: Patience Hudson Estimated blood loss (cc): 25 Specimen: Gallbladder and contents Condition: stable Disposition: PACU Procedure in Detail: Laparoscopic cholecystectomy and intraoperative cholangiogram POD 1, as above Plan: Serial abdominal exams Adequate pain control. Adequate pain control will support deep breathing NPO diet Ambulate TID, with assistance Incentive spirometry PPI prophylaxis, IV while NPO. May transition to PO once pt able to tolerate NPO. GI on consult for additional recs Qualifiers: Pancreatitis type: unspecified pancreatitis type Acute pancreatitis complication: unspecified Qualified Code(s): K85.90 - Acute pancreatitis without necrosis or infection, unspecified (2) Cholelithiasis Current Visit: Yes Status: Acute Gallstone pancreatitis. Plan as above. Qualifiers: Cholelithiasis location: gallbladder Cholecystitis presence: with cholecystitis Cholecystitis acuity: acute Biliary obstruction: without biliary obstruction Qualified Code(s): K80.00 - Calculus of gallbladder with acute cholecystitis without obstruction (3) DVT prophylaxis Current Visit: Yes Status: Acute Per primary. Subjective Patient reports: still having pain, voiding w/o difficulty, afebrile Narrative: Denies Nausea. No vomiting. Endorses abdominal pain 5/10, pt apprehensive to take deep breaths secondary to current pain. Endorses passing flatus. No bowel movement today yet. Objective Vital Signs - Last 8 Hours Temp Pulse Resp BP Pulse Ox 10/04/17 10:05 98.0 F 81 16 116/71 96 10/04/17 06:27 97.7 F 74 16 115/80 99 Intake and Output 10/03/17 10/04/17 10/04/17 23:59 07:59 15:59 Intake Total 240 / 240 1770 / 1770 480 / 480 Output Total 825 / 825 800 / 800 0 / 0 Balance -585 / -585 970 / 970 480 / 480 Intake: IV Fluids 1050 / 1050 0.9 % Sodium Chloride 1,000 ML 1000 / 1000 @ 100 mls/hr IVC .Q10H DEBRA Rx#: [id number] Cleocin Premix 900 MG/50 ML 900 50 / 50 mg In 50 ml @ 50 mls/hr IVPB Q8HR DEBRA Rx#:[id number] Oral 240 / 240 720 / 720 480 / 480 Output: Urine 800 / 800 800 / 800 0 / 0 Estimated Blood Loss 25 / 25 Other: Meal Clear # Bowel Movements 0 Blood Glucose* 97 - General physical appearance no distress - Eyes normal ocular movement - Respiratory clear to auscultation, other (No wheezing.) - Abdomen Abdomen: Present: bowel sounds present, soft, tender (expected post-op tenderness) - Incision Incision: Absent: draining, purulent - Labs 10/04/17 04:03 10/04/17 04:03 Diabetes panel 10/04/17 Range/Units 04:03 Sodium 136 (136-145) mEq/L Potassium 4.3 (3.5-5.1) mEq/L Chloride 104 (98-107) mEq/L Carbon Dioxide 26 (23-29) mEq/L BUN 6 (6-20) mg/dL Creatinine 0.56 L (0.60-1.20) mg/dL Glucose 124 H (70-105) mg/dL Calcium 8.7 (8.6-10.3) mg/dL AST 126 H (13-39) Units/L ALT 95 H (7-52) Units/L Alkaline Phosphatase 192 H (34-104) Units/L Albumin 3.5 (3.5-5.7) g/dL Calcium panel 10/04/17 Range/Units 04:03 Calcium 8.7 (8.6-10.3) mg/dL Albumin 3.5 (3.5-5.7) g/dL Pituitary panel 10/04/17 Range/Units 04:03 Sodium 136 (136-145) mEq/L Potassium 4.3 (3.5-5.1) mEq/L Chloride 104 (98-107) mEq/L Carbon Dioxide 26 (23-29) mEq/L BUN 6 (6-20) mg/dL Creatinine 0.56 L (0.60-1.20) mg/dL Glucose 124 H (70-105) mg/dL Calcium 8.7 (8.6-10.3) mg/dL Adrenal panel 01/30/18 Range/Units 04:03 Sodium 136 (136-145) mEq/L Potassium 4.3 (3.5-5.1) mEq/L Chloride 104 (98-107) mEq/L Carbon Dioxide 26 (23-29) mEq/L BUN 6 (6-20) mg/dL Creatinine 0.56 L (0.60-1.20) mg/dL Glucose 124 H (70-105) mg/dL Calcium 8.7 (8.6-10.3) mg/dL Total Bilirubin 0.6 (0.3-1.0) mg/dL AST 126 H (13-39) Units/L ALT 95 H (7-52) Units/L Alkaline Phosphatase 192 H (34-104) Units/L Albumin 3.5 (3.5-5.7) g/dL - VTE Documentation of Mechanical Device: Intermittent pneumatic compression device Consult Discharge Plan - Plan Referrals: Shanice Krishnamurthy, PERSONAL BANKING ADVISOR [Primary Care Provider] -
--- NOTE | 2017-10-04 11:58 | Internal Med Progress Note ---
<Radha Nunez - Last Filed: 10/04/17 14:06> Date of Encounter: 10/04/17 Time of Encounter: 10:00 - Assessment and plan (1) Acute pancreatitis Current Visit: Yes Status: Acute Assessment and plan: s/p cholecystectomy. Cholangiogram showed no flow into duodenum. May be spasming sphincter Adán vs CBD stone. May need MRCP or ERCP. Acute gallstone pancreatitis afebrile WBC 6.8 LFT & alk phos elevated Plan GI consulted, recommendations appreciated NPO IVF PO analgesics PRN Symptomatic and supportive care surgery following, recommendations appreciated Qualifiers: Pancreatitis type: unspecified pancreatitis type Acute pancreatitis complication: unspecified Qualified Code(s): K85.90 - Acute pancreatitis without necrosis or infection, unspecified (2) Cholelithiasis Current Visit: Yes Status: Acute Assessment and plan: s/p cholecystectomy for gallstone acute pancreatitis surgery following Qualifiers: Cholelithiasis location: gallbladder Cholecystitis presence: with cholecystitis Cholecystitis acuity: acute Biliary obstruction: without biliary obstruction Qualified Code(s): K80.00 - Calculus of gallbladder with acute cholecystitis without obstruction (3) Intractable nausea and vomiting Current Visit: Yes Status: Acute Assessment and plan: Resolved Zofran PRN Qualifiers: Vomiting type: unspecified Qualified Code(s): R11.2 - Nausea with vomiting , unspecified (4) Dehydration Current Visit: Yes Status: Acute Assessment and plan: Resolved (5) DVT prophylaxis Current Visit: Yes Status: Acute Assessment and plan: Heparin sq - Subjective Interval history: Setting up comfortably in bed talking on cell phone. She reports that she still has a little tenderness in her abdomen. Denies fever, chills, chest pain , shortness of breath. - Constitutional Vitals: Temp Pulse Resp BP Pulse Ox 98.0 F 81 16 116/71 96 10/04/17 10:05 10/04/17 10:05 10/04/17 10:05 10/04/17 10:05 10/04/17 10:05 General appearance: Present: A&O X 3, no acute distress, answers questions appropriately Exam: Gen.: Vitals noted. No acute distress. AAOx3 HEENT: oropharynx clear, Normocephalic, atraumatic Neck: Supple. No adenopathy. Cardiac: RRR, no murmur, +S1/S2 Pulmonary: CTA bilaterally, no wheezes, rales or rhonchi, equal chest expansion Abdomen: soft, minimal tender, Bowel sounds noted, no guarding MSK: ROM intact, no joint swelling noted Extremities: no BLE edema, nontender calf, no cyanosis or clubbing Neuro: A&Ox3, moves all extremities, no focal deficits Psych: Appropriate mood and behavior Internal Medicine: Result - Labs CBC & Chem 7: 10/04/17 04:03 10/04/17 04:03 Labs: Short CBC 10/04/17 Range/Units 04:03 WBC 6.8 (4.3-11.1) K/mcL Hgb 12.3 (11.5-15.4) g/dL Hct 37.2 (35.3-44.9) % Plt Count 320 (140-400) K/mcL Neutrophils # 5.2 (1.6-8.9) K/mcL BMP 10/04/17 04:03 Sodium 136 Potassium 4.3 Chloride 104 Carbon Dioxide 26 BUN 6 Creatinine 0.56 L Glucose 124 H Calcium 8.7 Liver Function 10/04/17 Range/Units 04:03 Total Bilirubin 0.6 (0.3-1.0) mg/dL AST 126 H (13-39) Units/L ALT 95 H (7-52) Units/L Alkaline Phosphatase 192 H (34-104) Units/L Albumin 3.5 (3.5-5.7) g/dL - Impressions Impressions Cholangiogram,Operative 10/03/17 19:00 IMPRESSION: Intraprocedural fluoroscopic spot images as above. See separate procedure report for more information. D/ / Tee eNri MD / Tee Neri MD Interpreting Provider: Tee Neri MD - VTE Documentation of Mechanical Device: Intermittent pneumatic compression device Consult Discharge Plan - Plan Referrals: Shanice Krishnamurthy, ASH PIT WORKER [Primary Care Provider] - <Willard Walton H - Last Filed: 10/04/17 15:21> Date of Encounter: 10/04/17 - Constitutional Vitals: Temp Pulse Resp BP Pulse Ox 98.1 F 90 16 112/75 97 10/04/17 14:12 10/04/17 14:12 10/04/17 14:12 10/04/17 14:12 10/04/17 14:12 Internal Medicine: Result - Labs CBC & Chem 7: 10/04/17 04:03 10/04/17 04:03 Labs: Short CBC 10/04/17 Range/Units 04:03 WBC 6.8 (4.3-11.1) K/mcL Hgb 12.3 (11.5-15.4) g/dL Hct 37.2 (35.3-44.9) % Plt Count 320 (140-400) K/mcL Neutrophils # 5.2 (1.6-8.9) K/mcL BMP 10/04/17 04:03 Sodium 136 Potassium 4.3 Chloride 104 Carbon Dioxide 26 BUN 6 Creatinine 0.56 L Glucose 124 H Calcium 8.7 Liver Function 10/04/17 Range/Units 04:03 Total Bilirubin 0.6 (0.3-1.0) mg/dL AST 126 H (13-39) Units/L ALT 95 H (7-52) Units/L Alkaline Phosphatase 192 H (34-104) Units/L Albumin 3.5 (3.5-5.7) g/dL - Impressions Impressions Cholangiogram,Operative 10/03/17 19:00 IMPRESSION: Intraprocedural fluoroscopic spot images as above. See separate procedure report for more information. D/ / Tee Neri MD / Tee Neri MD Interpreting Provider: Tee Neri MD X-Ray 10/04/17 12:25 IMPRESSION: Contrast noted within the right colon. Right upper quadrant is not completely evaluated. No contrast visualized in the region of the mid and lower liver. Evaluation is limited is intraoperative cholangiogram was performed on October 03, 2017 due to probable interval absorption. D/ / Edna Soler MD / Edna Soler MD Interpreting Provider: Edna Soler MD - Attending Attestation GI to decide between ERCP and MRCP I examined this patient and my medical decision-making was reviewed with the Resident Physician. I agree with the documented findings, disposition and treatment plan as described except to the extent set forth below.
--- NOTE | 2017-10-04 12:55 | Gastroenterology Consult Note ---
<Alana Ibrahim - Last Filed: 10/04/17 12:52> Date of Encounter: 10/04/17 Time of Encounter: 10:10 - Assessment and plan (1) Abnormal LFTs (liver function tests) Status: Acute Assessment and plan: Pt is status post cholecystectomy. She had abnormal IOC. Lfts are mildly elevated. She may have had a spasm of spinter of kamala which blocked passage of contrast during IOC vs CBD stone. She may need MRCP vs ERCP will discuss with Dr Bliss. (2) Status post cholecystectomy Status: Acute - Time Spent With Patient Total time spent is greater than 50% in coordination of care (as documented) at patient's floor/unit and/or counseling patient: GI History of Present Illness - Data of Consult Patient: new to practice Consult date: 10/04/17 Requesting Physician: Willard Walton - Consult Narrative Reason for consult: abnormal IOC and LFTs History of present illness: Ms. Rossi is a 27 year old female with no prior past medical history. She presented [facility] today from [facility] with intractable nausea and vomiting and abdominal pain for the last [address] scan reveals inflammation of the pancreatic head. She is status post cholecystectomy yesterday. IOC was done but did not show flow into the duodenum and showed retrograde flow in the pancreatic duct. Labs this morning show a T bili 0.6, AST 126 and ALT 95 and Alk phos 192. The patient reports incisional pain 5/10 and right sided abdominal pain 7/10. She denies nausea or vomiting. She denies BM since surgery but reports she has passed gas. She denies previous scopes, anticoagulants, coronary stents or pacemaker. Past Med Surg Social Fam HX - Past Medical History Medical history: no medical history Psychiatric history: no psych history - Past Surgical History Surgical History: other (Tubal ligation) - Social History Smoking Status: Never smoker Smokeless Tobacco Status: No Alcohol use: none Drug use: none - Family History Mother Living Status: Still Living Hx Family Neurologic Disorders: Yes (Seziures) Review of Systems: GI: as per [place] GENERAL: denies fever, or chills EYES: denies yellow discoloration ENT: denies pain with swallowing or difficulty swallowing CARDIO: denies chest pain, palpitations RESP: No Shortness of breath with exertion : denies change in color of urine NEURO: denies any weakness HEME: Denies any bruising MS: denies joint pain, joint swelling or back pain. DERM: denies rash or itching PSYCH: Denies history of anxiety or depression - Constitutional Vitals: Temp Pulse Resp BP Pulse Ox 98.0 F 81 16 116/71 96 10/04/17 10:05 10/04/17 10:05 10/04/17 10:05 10/04/17 10:05 10/04/17 10:05 Exam: CONSTITUTIONAL:~alert, no acute distress.~HEAD:~normocephalic.~EYES:~no jaundice.~NECK:~no obvious swelling.~HEART:~regular rate and rhythm, no murmurs. ~LUNGS:~bilateral good air entry.~ABDOMEN:~softly distended, tender, laproscopic incisions well approximated no drainage or bruising noted, unable to palpate for masses or organomegaly due to incisional pain.~RECTAL EXAM:~ Deferred.~EXTREMITIES:~no clubbing, cyanosis or edema.~SKIN:~no stigmata of chronic liver disease.~NEUROLOGIC:~no obvious focal defect.~~~~ Results - Labs CBC & Chem 7: 10/04/17 04:03 10/04/17 04:03 Labs: Last Result Calcium 8.7 mg/dL (8.6-10.3) 10/04/17 04:03 Triglycerides 54 mg/dL (< 150) 10/01/17 21:14 Entire Visit Hgb 12.3 g/dL (11.5-15.4) 10/04/17 04:03 Hct 37.2 % (35.3-44.9) 10/04/17 04:03 Total Bilirubin 0.6 mg/dL (0.3-1.0) 10/04/17 04:03 AST 126 Units/L (13-39) H 10/04/17 04:03 ALT 95 Units/L (7-52) H 10/04/17 04:03 Amylase 44 Units/L (29-103) 10/04/17 04:03 Lipase 25 Units/L (11-82) 10/04/17 04:03 - Impressions Impressions Cholangiogram,Operative 10/03/17 19:00 IMPRESSION: Intraprocedural fluoroscopic spot images as above. See separate procedure report for more information. D/ / Tee Neri MD / Tee Neri MD Interpreting Provider: Tee Neri MD Consult Discharge Plan - Plan Instructions: Pancreatitis (DC) Additional Instructions: Follow-up with primary care physician within the next 7 days. Continue low-fat and low lactose diet. Referrals: Angela Barton CONCRETE TECHNICIAN [Advanced Practice Nurse] - 10/17/17 3:30 pm Prescriptions: OxyCODONE Immed Rel [Roxicodone 5 MG] 10 mg PO Q4HR PRN 7 Days #40 tablet PRN Reason: Pain <Simon Bliss - Last Filed: 10/11/17 10:34> Date of Encounter: 10/04/17 - Time Spent With Patient Total time spent is greater than 50% in coordination of care (as documented) at patient's floor/unit and/or counseling patient: GI History of Present Illness - Data of Consult Requesting Physician: Willard Walton - Consult Narrative History of present illness: Ms. Rossi is a 27 year old female - Constitutional Vitals: Temp Pulse Resp BP Pulse Ox 98.6 F 98 16 143/71 97 10/05/17 10:29 10/05/17 10:29 10/05/17 10:29 10/05/17 10:29 10/05/17 10:29 Results - Labs CBC & Chem 7: 10/05/17 04:03 10/05/17 04:03 Labs: Last Result Calcium 7.9 mg/dL (8.6-10.3) L 10/05/17 04:03 Triglycerides 54 mg/dL (< 150) 10/01/17 21:14 Entire Visit Hgb 10.9 g/dL (11.5-15.4) L 10/05/17 04:03 Hct 33.2 % (35.3-44.9) L 10/05/17 04:03 Total Bilirubin 0.5 mg/dL (0.3-1.0) 10/05/17 04:03 AST 62 Units/L (13-39) H 10/05/17 04:03 ALT 85 Units/L (7-52) H 10/05/17 04:03 Amylase 44 Units/L (29-103) 10/04/17 04:03 Lipase 25 Units/L (11-82) 10/04/17 04:03 - Attending Attestation I have personally performed a face to face evaluation on this patient. I have reviewed and agree with the care plan. History and Exam by me shows:
[2017-10-04] MEDS: *HR* Heparin 5,000 UNIT/ML VIAL SQ SCH (18:43)
[2017-10-04] MEDS: Ketorolac 15 MG/ML VIAL IVP SCH (18:43)
[2017-10-04] MEDS: Pantoprazole 40 MG VIAL IVP SCH (18:43)
[2017-10-05] MEDS: Ketorolac 15 MG/ML VIAL IVP SCH ×2 (00:18→05:26)
[2017-10-05] MEDS: 0.9 % Sodium Chloride 1,000 ML IVC SCH ×2 (03:19→14:04)
[2017-10-05 05:16] LABS: Hematocrit 33.2 % (35.3-44.9); Hemoglobin 10.9 g/dL (11.5-15.4); Mean Corpuscular HGB Conc 32.8 g/dL (31.6-35.5); Mean Corpuscular Hemoglobin 31.1 pg (28.0-33.3); Mean Corpuscular Volume 94.9 fL (83.0-100.0); Mean Platelet Volume 9.2 fL (9.4-12.4); Platelet Count 304 K/mcL (140-400); Red Cell Distribution Width 13.3 % (11.5-14.5)
[2017-10-05 05:21] LABS: BUN/Creatinine Ratio 8 (6-26); Blood Urea Nitrogen 5 mg/dL (6-20); Calcium 7.9 mg/dL (8.6-10.3); Carbon Dioxide 26 mEq/L (23-29); Chloride 109 mEq/L (98-107); Glucose 93 mg/dL (70-105); Osmolality,Calculated 287 (280-300); Potassium 3.4 mEq/L (3.5-5.1); Sodium 140 mEq/L (136-145); eGFR For African Americans > 60 (> 60); eGFR For Non-African Americans > 60 (> 60)
[2017-10-05 05:23] LABS: Alanine Aminotransferase 85 Units/L (7-52); Albumin/Globulin Ratio 1.3 (1.1-2.2); Alkaline Phosphatase 154 Units/L (34-104); Aspartate Amino Transferase 62 Units/L (13-39); BUN/Creatinine Ratio 9 (6-26); Bilirubin,Total 0.5 mg/dL (0.3-1.0); Blood Urea Nitrogen 5 mg/dL (6-20); Calcium 7.9 mg/dL (8.6-10.3); Carbon Dioxide 27 mEq/L (23-29); Chloride 109 mEq/L (98-107); Globulin 2.4 g/dL (2.4-3.5); Glucose 94 mg/dL (70-105); Osmolality,Calculated 287 (280-300); Potassium 3.4 mEq/L (3.5-5.1); Sodium 140 mEq/L (136-145); Total Protein 5.4 g/dL (6.4-8.9); eGFR For African Americans > 60 (> 60); eGFR For Non-African Americans > 60 (> 60)
[2017-10-05 05:24] LABS: Bilirubin,Direct 0.2 mg/dL (0.0-0.2); Bilirubin,Indirect 0.3 mg/dL (0.0-1.2); Bilirubin,Total 0.5 mg/dL (0.3-1.0)
[2017-10-05] MEDS: *HR* Heparin 5,000 UNIT/ML VIAL SQ SCH (05:26)
[2017-10-05] MEDS: Pantoprazole 40 MG VIAL IVP SCH (05:26)
--- NOTE | 2017-10-05 08:50 | General Surgery Progress Note ---
Date of Encounter: 10/05/17 Time of Encounter: 08:49 - Assessment and Plan (1) Acute pancreatitis Current Visit: Yes Status: Acute Date of procedure: 10/03/17 Pre-op diagnosis: Gallstone pancreatitis Post-op diagnosis: same Procedure: Upper scalp cholecystectomy, cholangiogram Anesthesia: GETA Surgeon: Goran Alexander Was there an glass ribbon machine operator assistant present: Yes Software Quality Automation Engineer: Patience Hudson Estimated blood loss (cc): 25 Specimen: Gallbladder and contents Condition: stable Disposition: PACU Procedure in Detail: Laparoscopic cholecystectomy and intraoperative cholangiogram POD 2, as above Aminotransferases downtrending. Plan: Serial abdominal exams Adequate pain control. Adequate pain control will support deep breathing Ambulate TID, with assistance Incentive spirometry PPI prophylaxis, IV while NPO. GI on consult, appreciate recs. Qualifiers: Pancreatitis type: unspecified pancreatitis type Acute pancreatitis complication: unspecified Qualified Code(s): K85.90 - Acute pancreatitis without necrosis or infection, unspecified (2) Cholelithiasis Current Visit: Yes Status: Acute Gallstone pancreatitis. Plan as above. Qualifiers: Cholelithiasis location: gallbladder Cholecystitis presence: with cholecystitis Cholecystitis acuity: acute Biliary obstruction: without biliary obstruction Qualified Code(s): K80.00 - Calculus of gallbladder with acute cholecystitis without obstruction (3) DVT prophylaxis Current Visit: Yes Status: Acute Per primary. Subjective Patient reports: afebrile Objective Vital Signs - Last 8 Hours Temp Pulse Resp BP Pulse Ox 10/05/17 06:32 98.5 F 85 14 119/77 97 10/05/17 03:59 98.2 F 86 15 115/75 97 Intake and Output 10/04/17 10/05/17 10/05/17 23:59 07:59 15:59 Intake Total 480 / 480 1000 / 1000 Output Total 0 / 0 700 / 700 Balance 480 / 480 300 / 300 Intake: IV Fluids 1000 / 1000 0.9 % Sodium Chloride 1,000 ML 1000 / 1000 @ 150 mls/hr IVC .[id number] DEBRA Rx #:[id number] Oral 480 / 480 0 / 0 Output: Urine 0 / 0 700 / 700 Other: Meal Clears Percent of Meal Consumed 0% Weight 63.7 kg Blood Glucose* 84 Patient Weight 10/05/17 23:59 Weight 63.7 kg - Labs 10/05/17 04:03 10/05/17 04:03 Diabetes panel 10/05/17 10/05/17 Range/Units 04:03 04:03 Sodium 140 140 (136-145) mEq/L Potassium 3.4 L 3.4 L (3.5-5.1) mEq/L Chloride 109 H 109 H (98-107) mEq/L Carbon Dioxide 26 27 (23-29) mEq/L BUN 5 L 5 L (6-20) mg/dL Creatinine 0.59 L 0.58 L (0.60-1.20) mg/dL Glucose 93 94 (70-105) mg/dL Calcium 7.9 L 7.9 L (8.6-10.3) mg/dL AST 62 H (13-39) Units/L ALT 85 H (7-52) Units/L Alkaline Phosphatase 154 H (34-104) Units/L Albumin 3.0 L (3.5-5.7) g/dL Calcium panel 10/05/17 10/05/17 Range/Units 04:03 04:03 Calcium 7.9 L 7.9 L (8.6-10.3) mg/dL Albumin 3.0 L (3.5-5.7) g/dL Pituitary panel 10/05/17 10/05/17 Range/Units 04:03 04:03 Sodium 140 140 (136-145) mEq/L Potassium 3.4 L 3.4 L (3.5-5.1) mEq/L Chloride 109 H 109 H (98-107) mEq/L Carbon Dioxide 26 27 (23-29) mEq/L BUN 5 L 5 L (6-20) mg/dL Creatinine 0.59 L 0.58 L (0.60-1.20) mg/dL Glucose 93 94 (70-105) mg/dL Calcium 7.9 L 7.9 L (8.6-10.3) mg/dL Adrenal panel 10/05/17 10/05/17 10/05/17 Range/Units 04:03 04:03 04:03 Sodium 140 140 (136-145) mEq/L Potassium 3.4 L 3.4 L (3.5-5.1) mEq/L Chloride 109 H 109 H (98-107) mEq/L Carbon Dioxide 26 27 (23-29) mEq/L BUN 5 L 5 L (6-20) mg/dL Creatinine 0.59 L 0.58 L (0.60-1.20) mg/dL Glucose 93 94 (70-105) mg/dL Calcium 7.9 L 7.9 L (8.6-10.3) mg/dL Total Bilirubin 0.5 0.5 (0.3-1.0) mg/dL AST 62 H (13-39) Units/L ALT 85 H (7-52) Units/L Alkaline Phosphatase 154 H (34-104) Units/L Albumin 3.0 L (3.5-5.7) g/dL - VTE Documentation of Mechanical Device: Intermittent pneumatic compression device Consult Discharge Plan - Plan Referrals: Shanice Krishnamurthy, INDUSTRIAL RELATIONS OFFICER [Primary Care Provider] -
[2017-10-05] MEDS ORDERED: *HR* OxyCODONE Immed Rel 5 MG TABLET PO PRN (09:20)
[2017-10-05] MEDS: *HR* OxyCODONE Immed Rel 5 MG TABLET PO PRN (09:55)
--- NOTE | 2017-10-05 10:23 | Discharge Summary ---
<Willard Walton H - Last Filed: 10/05/17 11:19> Date of Encounter: 10/05/17 - Discharge Medications Home Medications: No Known Home Drugs 10/01/17 [History] Allergies/Adverse Reactions: 3 Allergy/AdvReac Type Severity Reaction Status Date / Time Penicillins [PCN] Allergy Rash Verified 10/02/17 12:08 General Surgery Exam Initial Vital Signs Temp Pulse Resp BP Pulse Ox 97.5 F L 94 16 123/80 98 10/01/17 20:14 10/01/17 20:14 10/01/17 20:14 10/01/17 20:14 10/01/17 20:14 Date of admission: 10/01/17 19:23 Primary care physician: Ermelinda Santos Consults: 10/01/17 23:07 Consult to Pastoral Services [CONS] Routine Comment: 10/03/17 09:33 Consult to Surgery [CONS] Routine Consulting Provider: Goran Alexander Reason for Consult: RUQ abd - cholelithiasis, Pancreatitis Call Completed: Yes 10/04/17 08:26 Consult to Gastroenterology [CONS] Stat Consulting Provider: Gastroenterology Beatriz Reason for Consult: Elevateed LFT s/p lap brenda; spoke with Leonie Ovalles Time Notified: 08:26 Call Completed: No 10/05/17 10:26 Consult to Nutrition [CONS] Routine Comment: D/c PM,s/p dinner lowresidue/fat,diet(pancreatitis Consulting Provider: NUTRITION Reason for Dietary Consult: Diet Education - Patient Status Disposition: Home, Self-Care Condition: Good - Discharge Instructions Instructions: Pancreatitis (DC) Follow Up With: Shanice Krishnamurthy CNP [Primary Care Provider] - Angela Barton CNP [Advanced Practice Nurse] - 10/17/17 3:30 pm - Hospital Course Hospital course: Ms. Rossi is a 27 year old female - Time Spent with Patient Total time spent providing and/or coordinating discharge services: Labs on day of discharge: Labs from last 24 hours 10/05/17 10/05/17 10/05/17 06:06 04:03 04:03 WBC RBC Hgb Hct MCV MCH MCHC RDW Plt Count MPV Sodium 140 Potassium 3.4 L Chloride 109 H Carbon Dioxide 27 BUN 5 L Creatinine 0.58 L Est GFR ( Amer) > 60 Est GFR (Non-Af Amer) > 60 BUN/Creatinine Ratio 9 Glucose 94 POC Glucose 84 Calculated Osmolality 287 Calcium 7.9 L Total Bilirubin 0.5 0.5 Direct Bilirubin 0.2 Indirect Bilirubin 0.3 AST 62 H ALT 85 H Alkaline Phosphatase 154 H Serum Total Protein 5.4 L Albumin 3.0 L Globulin 2.4 Albumin/Globulin Ratio 1.3 10/05/17 10/05/17 10/04/17 04:03 04:03 11:12 WBC 6.0 RBC 3.50 L Hgb 10.9 L Hct 33.2 L MCV 94.9 MCH 31.1 MCHC 32.8 RDW 13.3 Plt Count 304 MPV 9.2 L Sodium 140 Potassium 3.4 L Chloride 109 H Carbon Dioxide 26 BUN 5 L Creatinine 0.59 L Est GFR ( Amer) > 60 Est GFR (Non-Af Amer) > 60 BUN/Creatinine Ratio 8 Glucose 93 POC Glucose 97 H Calculated Osmolality 287 Calcium 7.9 L Total Bilirubin Direct Bilirubin Indirect Bilirubin AST ALT Alkaline Phosphatase Serum Total Protein Albumin Globulin Albumin/Globulin Ratio - Impressions ITS Impressions Abdomen Ultrasound 10/03/17 08:00 IMPRESSION: 1. Moderate amount of layering echogenicity within the gallbladder representing combination of sludge and stones. 2. Visualized pancreas appears mildly prominent and edematous consistent with pancreatitis as seen on CT examination. D/ / Jerome Rojas MD / Jerome Rojas MD Interpreting Provider: Jerome Rojas MD Cholangiogram,Operative 10/03/17 19:00 IMPRESSION: Intraprocedural fluoroscopic spot images as above. See separate procedure report for more information. D/ / Tee Neri MD / Tee Neri MD Interpreting Provider: Tee Neri MD X-Ray 10/04/17 12:25 IMPRESSION: Contrast noted within the right colon. Right upper quadrant is not completely evaluated. No contrast visualized in the region of the mid and lower liver. Evaluation is limited is intraoperative cholangiogram was performed on October 03, 2017 due to probable interval absorption. D/ / Edna Soler MD / Edna Soler MD Interpreting Provider: Edna Soler MD <Carly Campbell - Last Filed: 10/05/17 12:15> Date of Encounter: 10/05/17 Time of Encounter: 10:20 - Discharge Diagnosis (1) Acute pancreatitis Priority: Primary Status: Acute Qualifiers: Pancreatitis type: unspecified pancreatitis type Acute pancreatitis complication: unspecified Qualified Code(s): K85.90 - Acute pancreatitis without necrosis or infection, unspecified (2) Cholelithiasis Priority: Primary Status: Acute Qualifiers: Cholelithiasis location: gallbladder Cholecystitis presence: with cholecystitis Cholecystitis acuity: acute Biliary obstruction: without biliary obstruction Qualified Code(s): K80.00 - Calculus of gallbladder with acute cholecystitis without obstruction (3) DVT prophylaxis Priority: Secondary Status: Acute General Surgery Exam Initial Vital Signs Temp Pulse Resp BP Pulse Ox 97.5 F L 94 16 123/80 98 10/01/17 20:14 10/01/17 20:14 10/01/17 20:14 10/01/17 20:14 10/01/17 20:14 - General physical appearance no distress - Eyes normal ocular movement - Respiratory normal respiratory effort, clear to auscultation - Cardiovascular Cardiovascular exam: Present: regular rhythm, no murmurs/rubs/gallops - Abdomen Abdomen general surgery: Present: bowel sounds present, soft, tender (post-op tenderness, particulary around incisision haley ) - Incision Incision: Absent: draining, purulent Date of admission: 10/01/17 19:23 Primary care physician: Ermelinda Santos Consults: 10/01/17 23:07 Consult to Pastoral Services [CONS] Routine Comment: 10/03/17 09:33 Consult to Surgery [CONS] Routine Consulting Provider: Goran Alexander Reason for Consult: RUQ abd - cholelithiasis, Pancreatitis Call Completed: Yes 10/04/17 08:26 Consult to Gastroenterology [CONS] Stat Consulting Provider: Gastroenterology Beatriz Reason for Consult: Elevateed LFT s/p lap brenda; spoke with Leonie Ovalles Time Notified: 08:26 Call Completed: No Discharging clinician: Goran Alexander Anticipated date of discharge: 10/05/17 - Patient Status Functional capacity at discharge: independent ambulation Overall status at discharge: patient is progressing back to baseline - Diet and Activity Activity: increase activity as tolerated Diet: other (low residue, low fat, soft diet (refer to diet by Digital Artist)) - Hospital Course Hospital course: Ms. Rossi is a 27 year old female who presented to the ED with intractable nausea and vomiting, with abdominal US and CT consistent with pancreatitis. She underwent a laparoscopic cholecystectomy and intraoperative cholangiogram Pt was treated with supportive care including pain control, intravenous fluids with emphasis on adequate pain control. During hospitalization, a national shortage of hydromorphone and morphine was in place , necessitating use of oxycodone, as part of pain control regimen. Patient was followed post-operatively for stable clinical status, and labs for resolution of incoming leukocytosis and improving trends in hepatic panel markers. GI was placed on consult and evaluated patient. Prior to discharge, vacuum pan operator service offered patient nutritional counseling with emphasis on low-residue, low-and soft diet, to facilitate recovery. Patient was counseled to return to the ED immediately in case of development of fever, nausea, vomiting, abdominal pain, or new-onset acute pain. She was counseled that new onset-abdominal pain or mass requires immediate evaluation, as this may represent a development of acute peripancreatic fluid collection or pancreatic pseudocyst. She was scheduled for follow-up as outpatient with the surgical group and schedule for discharge following tolerance of advancement of diet and adequate supportive care with pain control. - Time Spent with Patient Total time spent providing and/or coordinating discharge services: Procedures and tests throughout hospitalization: ITS Impressions Abdomen Ultrasound 10/03/17 08:00 IMPRESSION: 1. Moderate amount of layering echogenicity within the gallbladder representing combination of sludge and stones. 2. Visualized pancreas appears mildly prominent and edematous consistent with pancreatitis as seen on CT examination. D/ / Jerome Rojas MD / Jerome Rojas MD Interpreting Provider: Jerome Rojas MD Cholangiogram,Operative 10/03/17 19:00 IMPRESSION: Intraprocedural fluoroscopic spot images as above. See separate procedure report for more information. D/ / Tee Neri MD / Tee Neri MD Interpreting Provider: Tee Neri MD X-Ray 10/04/17 12:25 IMPRESSION: Contrast noted within the right colon. Right upper quadrant is not completely evaluated. No contrast visualized in the region of the mid and lower liver. Evaluation is limited is intraoperative cholangiogram was performed on October 03, 2017 due to probable interval absorption. D/ / Edna Soler MD / Edna Soler MD Interpreting Provider: Edna Soler MD Labs on day of discharge: Labs from last 24 hours 10/05/17 10/05/17 10/05/17 06:06 04:03 04:03 WBC RBC Hgb Hct MCV MCH MCHC RDW Plt Count MPV Sodium 140 Potassium 3.4 L Chloride 109 H Carbon Dioxide 27 BUN 5 L Creatinine 0.58 L Est GFR ( Amer) > 60 Est GFR (Non-Af Amer) > 60 BUN/Creatinine Ratio 9 Glucose 94 POC Glucose 84 Calculated Osmolality 287 Calcium 7.9 L Total Bilirubin 0.5 0.5 Direct Bilirubin 0.2 Indirect Bilirubin 0.3 AST 62 H ALT 85 H Alkaline Phosphatase 154 H Serum Total Protein 5.4 L Albumin 3.0 L Globulin 2.4 Albumin/Globulin Ratio 1.3 10/05/17 10/05/17 10/04/17 04:03 04:03 11:12 WBC 6.0 RBC 3.50 L Hgb 10.9 L Hct 33.2 L MCV 94.9 MCH 31.1 MCHC 32.8 RDW 13.3 Plt Count 304 MPV 9.2 L Sodium 140 Potassium 3.4 L Chloride 109 H Carbon Dioxide 26 BUN 5 L Creatinine 0.59 L Est GFR ( Amer) > 60 Est GFR (Non-Af Amer) > 60 BUN/Creatinine Ratio 8 Glucose 93 POC Glucose 97 H Calculated Osmolality 287 Calcium 7.9 L Total Bilirubin Direct Bilirubin Indirect Bilirubin AST ALT Alkaline Phosphatase Serum Total Protein Albumin Globulin Albumin/Globulin Ratio - Impressions ITS Impressions Abdomen Ultrasound 10/03/17 08:00 IMPRESSION: 1. Moderate amount of layering echogenicity within the gallbladder representing combination of sludge and stones. 2. Visualized pancreas appears mildly prominent and edematous consistent with pancreatitis as seen on CT examination. D/ / Jerome Rojas MD / Jerome Rojas MD Interpreting Provider: Jerome Rojas MD Cholangiogram,Operative 10/03/17 19:00 IMPRESSION: Intraprocedural fluoroscopic spot images as above. See separate procedure report for more information. D/ / Tee Neri MD / Tee Neri MD Interpreting Provider: Tee Neri MD X-Ray 10/04/17 12:25
[2017-10-05 10:35] VITALS: BP 143/71
--- NOTE | 2017-10-05 12:19 | General Surgery Progress Note ---
<Carly Campbell - Last Filed: 10/05/17 12:15> Date of Encounter: 10/05/17 Time of Encounter: 12:15 - Assessment and Plan (1) Acute pancreatitis Status: Acute Current Visit: Yes Status: Acute Date of procedure: 10/03/17 Pre-op diagnosis: Gallstone pancreatitis Post-op diagnosis: same Procedure: Upper scalp cholecystectomy, cholangiogram Anesthesia: GETA Surgeon: Goran Alexander Was there an child care assistant present: Yes Theatrical Scenic Designer: Patience Hudson Estimated blood loss (cc): 25 Specimen: Gallbladder and contents Condition: stable Disposition: PACU Procedure in Detail: Laparoscopic cholecystectomy and intraoperative cholangiogram POD 2, as above Plan: Serial abdominal exams May advance to clear liquids at lunch, then advance to tolerated. Goal is low-residue, low-fat diet, soft diet. Informatics Physician consult placed for teaching Adequate pain control to support post-op rehabilitation Ambulate TID, with assistance Incentive spirometry. Deep breathing PPI prophylaxis, IV while NPO. May transition to PO once pt able to tolerate NPO. GI on consult for additional recs From surgical standpoint, patient stable for discharge pending continued tolerance of advancement of diet and adequate pain control. Pt was counseled on importance of post-operative diet as outpatient and warning signs to prompt return to ED Please call for any questions. Qualifiers: Pancreatitis type: unspecified pancreatitis type Acute pancreatitis complication: unspecified Qualified Code(s): K85.90 - Acute pancreatitis without necrosis or infection, unspecified (2) Cholelithiasis Status: Acute GI on consult, appreciate recs. Qualifiers: Cholelithiasis location: gallbladder Cholecystitis presence: with cholecystitis Cholecystitis acuity: acute Biliary obstruction: without biliary obstruction Qualified Code(s): K80.00 - Calculus of gallbladder with acute cholecystitis without obstruction (3) DVT prophylaxis Status: Acute Per primary. Subjective Patient reports: still having pain, pain is less, afebrile Objective Vital Signs - Last 8 Hours Temp Pulse Resp BP Pulse Ox 10/05/17 10:29 98.6 F 98 16 143/71 97 10/05/17 06:32 98.5 F 85 14 119/77 97 Intake and Output 10/04/17 10/05/17 10/05/17 23:59 07:59 15:59 Intake Total 480 / 480 1000 / 1000 0 / 0 Output Total 0 / 0 700 / 700 1900 / 1900 Balance 480 / 480 300 / 300 -1900 / -1900 Intake: IV Fluids 1000 / 1000 0.9 % Sodium Chloride 1,000 ML 1000 / 1000 @ 150 mls/hr IVC .Q6H40M [facility] Rx #:[id number] Oral 480 / 480 0 / 0 0 / 0 Output: Urine 0 / 0 700 / 700 1900 / 1900 Other: Meal Clears npo Percent of Meal Consumed 0% Weight 63.7 kg Blood Glucose* 84 90 Patient Weight 10/05/17 23:59 Weight 63.7 kg - General physical appearance no distress - Eyes normal ocular movement - Respiratory normal respiratory effort, clear to auscultation - Cardiovascular Cardiovascular exam: Present: regular rhythm. Absent: murmurs - Abdomen Abdomen: Present: bowel sounds present, soft, tender (expected post op tenderness, particular near incision sites ) - Incision Incision: Absent: draining, purulent - Labs 10/05/17 04:03 10/05/17 04:03 Diabetes panel 10/05/17 10/05/17 Range/Units 04:03 04:03 Sodium 140 140 (136-145) mEq/L Potassium 3.4 L 3.4 L (3.5-5.1) mEq/L Chloride 109 H 109 H (98-107) mEq/L Carbon Dioxide 26 27 (23-29) mEq/L BUN 5 L 5 L (6-20) mg/dL Creatinine 0.59 L 0.58 L (0.60-1.20) mg/dL Glucose 93 94 (70-105) mg/dL Calcium 7.9 L 7.9 L (8.6-10.3) mg/dL AST 62 H (13-39) Units/L ALT 85 H (7-52) Units/L Alkaline Phosphatase 154 H (34-104) Units/L Albumin 3.0 L (3.5-5.7) g/dL Calcium panel 10/05/17 10/05/17 Range/Units 04:03 04:03 Calcium 7.9 L 7.9 L (8.6-10.3) mg/dL Albumin 3.0 L (3.5-5.7) g/dL Pituitary panel 10/05/17 10/05/17 Range/Units 04:03 04:03 Sodium 140 140 (136-145) mEq/L Potassium 3.4 L 3.4 L (3.5-5.1) mEq/L Chloride 109 H 109 H (98-107) mEq/L Carbon Dioxide 26 27 (23-29) mEq/L BUN 5 L 5 L (6-20) mg/dL Creatinine 0.59 L 0.58 L (0.60-1.20) mg/dL Glucose 93 94 (70-105) mg/dL Calcium 7.9 L 7.9 L (8.6-10.3) mg/dL Adrenal panel 10/05/17 10/05/17 10/05/17 Range/Units 04:03 04:03 04:03 Sodium 140 140 (136-145) mEq/L Potassium 3.4 L 3.4 L (3.5-5.1) mEq/L Chloride 109 H 109 H (98-107) mEq/L Carbon Dioxide 26 27 (23-29) mEq/L BUN 5 L 5 L (6-20) mg/dL Creatinine 0.59 L 0.58 L (0.60-1.20) mg/dL Glucose 93 94 (70-105) mg/dL Calcium 7.9 L 7.9 L (8.6-10.3) mg/dL Total Bilirubin 0.5 0.5 (0.3-1.0) mg/dL AST 62 H (13-39) Units/L ALT 85 H (7-52) Units/L Alkaline Phosphatase 154 H (34-104) Units/L Albumin 3.0 L (3.5-5.7) g/dL - VTE Documentation of Mechanical Device: Intermittent pneumatic compression device Consult Discharge Plan - Plan Instructions: Pancreatitis (DC) Additional Instructions: Follow-up with primary care physician within the next 7 days. Continue low-fat and low lactose diet. Referrals: Angela Barton [employer]ATING [employer] ASSEMBLY SUPERVISOR [Advanced Practice Nurse] - 10/17/17 3:30 pm Prescriptions: OxyCODONE Immed Rel [Roxicodone 5 MG] 10 mg PO Q4HR PRN 7 Days #40 tablet PRN Reason: Pain <Catherine,Goran T - Last Filed: 10/06/17 07:37> Date of Encounter: 10/05/17 Objective Intake and Output 10/05/17 10/05/17 10/06/17 15:59 23:59 07:59 Intake Total 1000 / 1000 Output Total 1900 / 1900 Balance -900 / -900 Intake: IV Fluids 1000 / 1000 0.9 % Sodium Chloride 1,000 ML 1000 / 1000 @ 150 mls/hr IVC .Q6H40M [facility] Rx #:[id number] Oral 0 / 0 Output: Urine 1900 / 1900 Other: Meal npo Blood Glucose* 90 - Labs 10/05/17 04:03 10/05/17 04:03 - Attending Attestation I examined this patient and my medical decision-making was reviewed with the Resident Physician. I agree with the documented findings, disposition and treatment plan as described except to the extent set forth below. The patient is seen and evaluated on morning rounds. I personally reviewed the cholangiogram films with gastroenterology. The feeling is that if her bilirubin remains normal and the liver function tests are trending downward that ERCP and sphincterotomy will not be necessary. She can be followed as an outpatient. She is ready for discharge. Goran Alexander MD FACS
[2017-10-05] MEDS: Ibuprofen 600 MG TABLET PO SCH ×2 (14:04→14:06)
--- NOTE | 2017-10-05 14:38 | Discharge Summary ---
Date of Encounter: 10/05/17 Time of Encounter: 14:36 - Discharge Diagnosis (1) Acute pancreatitis Priority: Secondary Status: Acute Comments: Likely related to cholelithiasis status post cholecystectomy Qualifiers: Pancreatitis type: unspecified pancreatitis type Acute pancreatitis complication: unspecified Qualified Code(s): K85.90 - Acute pancreatitis without necrosis or infection, unspecified (2) Abnormal LFTs (liver function tests) Priority: Secondary Status: Acute Comments: Secondary to pancreatitis (3) Cholelithiasis Priority: Primary Status: Acute Qualifiers: Cholelithiasis location: gallbladder Cholecystitis presence: with cholecystitis Cholecystitis acuity: acute Biliary obstruction: without biliary obstruction Qualified Code(s): K80.00 - Calculus of gallbladder with acute cholecystitis without obstruction (4) Status post cholecystectomy Priority: Secondary Status: Acute - Discharge Medications Prescriptions: OxyCODONE Immed Rel [Roxicodone 5 MG] 10 mg PO Q4HR PRN 7 Days #40 tablet PRN Reason: Pain Home Medications: OxyCODONE Immed Rel [Roxicodone 5 MG] 10 mg PO Q4HR PRN 7 Days #40 tablet [Rx] Allergies/Adverse Reactions: 3 Allergy/AdvReac Type Severity Reaction Status Date / Time Penicillins [PCN] Allergy Rash Verified 10/02/17 12:08 Procedures/tests Complete & Pending: Procedures Performed prior 72 hours Category Date Time Status US abdomen limited [US] Stat Exams 10/03/17 08:00 Completed MRCP [MR abdomen wo con] [MR] Stat MRI 10/05/17 11:26 Completed Date of admission: 10/01/17 19:23 Primary care physician: Ermelinda Santos Consults: 10/01/17 23:07 Consult to Pastoral Services [CONS] Routine Comment: 10/03/17 09:33 Consult to Surgery [CONS] Routine Consulting Provider: Goran Alexander Reason for Consult: RUQ abd - cholelithiasis, Pancreatitis Call Completed: Yes 10/04/17 08:26 Consult to Gastroenterology [CONS] Stat Consulting Provider: Lauren Henderson Reason for Consult: Elevateed LFT s/p lap brenda; spoke with Leonie Ovalles Time Notified: 08:26 Call Completed: No 10/05/17 10:26 Consult to Nutrition [CONS] Routine Comment: D/c PM,s/p dinner lowresidue/fat,diet(pancreatitis Consulting Provider: NUTRITION Reason for Dietary Consult: Diet Education - Patient Status Disposition: Home, Self-Care Condition: Good - Discharge Instructions Instructions: Pancreatitis (DC) Follow Up With: Angela Barton CNP [Advanced Practice Nurse] - 10/17/17 3:30 pm Shanice Krishnamurthy CNP [Primary Care Provider] - Additional Instructions: Follow-up with primary care physician within the next 7 days. Continue low-fat and low lactose diet. - Diet and Activity Activity: increase activity as tolerated Diet: low fat, low cholesterol Hospital course: Ms. Rossi is a 27 year old female with no prior past medical history except for tubal ligation presented [facility] with intractable nausea and vomiting and abdominal pain for the last 3 days. She is reporting RUQ abdominal pain that feels sharp and is 8/10. The abdominal pain has only improved slightly over the last few days. She states that she has had a decrease in oral intake and has only been able to drink apple juice. Her urinary output has also decreased. She denies any fevers, chills, chest pain, constipation or shortness of breath. CT scan revealed inflammation of the pancreatic head. She had mild leukocytosis at 11.4 and her lipase was slightly elevated 8. She had a right upper quadrant ultrasound which revealed sludge and cholelithiasis. The pancreas was mildly prominent and edematous consistent with pancreatitis that was seen on the CT. Was evaluated by surgery and GI service. The patient underwent a cholecystectomy performed by Dr. Alexander on 10/03/2017. The patient has improved symptomatically. Denies any nausea or vomiting. MRI of the abdomen showed:Nonspecific fluid at the gallbladder fossa may simply be postsurgical status post cholecystectomy 2 days ago. HIDA scan correlation would be useful if clinically there is concern for bile duct leak following cholecystectomy. No choledocholithiasis. Normal-appearing pancreatic duct. Nonspecific ascites right upper quadrant, left upper quadrant and nonspecific small volume bilateral pleural effusion Stable to be discharged home per surgery - Time Spent with Patient Total time spent providing and/or coordinating discharge services: Greater than 30 minutes (40 min) - Constitutional Vitals: Temp Pulse Resp BP Pulse Ox 98.6 F 98 16 143/71 97 10/05/17 10:29 10/05/17 10:29 10/05/17 10:29 10/05/17 10:29 10/05/17 10:29 General appearance: Present: A&O X 3, no acute distress, answers questions appropriately - Head Head exam: Present: atraumatic, normocephalic - Eye Eye exam: Present: PERRL, conjuntiva pink, sclera anicteric Pupils: Present: PERRL - Neck Neck exam general surgery: Present: supple, trachea midline. Absent: lymphadenopathy - Respiratory Respiratory exam: Present: CTAB. Absent: accessory muscle use, rales, rhonchi, wheezes - Cardiovascular Cardiovascular exam: Present: RRR, +S1, +S2. Absent: diastolic murmur, gallop, rubs, systolic murmur - GI/Abdominal GI/Abdominal exam: Present: normal bowel sounds, soft, no peritoneal signs. Absent: distended, tenderness Additional comments: Surgical wounds appear without signs of infection, abdomen mildly distended - Extremities Exam Extremities exam: Present: warm, radial pulses palpable and symmetrical. Absent : calf tenderness, cyanotic, pedal edema - Neurological Exam Neurological exam: Present: CN II-XII intact, oriented X3, no focal deficits. Absent: pronater drift, facial droop, speech deficit - Skin Skin exam: Present: dry, intact - VTE Documentation of Mechanical Device: Intermittent pneumatic compression device
== END 2017-10-05 16:40 | disposition home or self-care (01) | DRG 263 ==
LOC: 3ANU
PROVIDERS: ADMIT Internal Medicine; ATTEND Internal Medicine

== ENCOUNTER 2021-12-19 17:28 | Observation (INO) ==
[2021-12-19] MEDS ORDERED: hydrOXYzine pamoate 25 MG CAPSULE PO PRN (20:06)
[2021-12-19] MEDS ORDERED: haloperidoL 5 MG TABLET PO PRN (20:06)
[2021-12-19] MEDS ORDERED: traZODone 50 MG TABLET PO PRN (20:06)
[2021-12-19] MEDS ORDERED: *HR* LORazepam 2 MG/ML VIAL IM PRN (20:06)
[2021-12-19] MEDS ORDERED: Acetaminophen 325 MG TABLET PO PRN (20:06)
[2021-12-19] MEDS ORDERED: Haloperidol Lactate 5 MG/ML VIAL IM PRN (20:06)
[2021-12-19] MEDS ORDERED: *HR* LORazepam 1 MG TABLET PO PRN (20:06)
[2021-12-20] MEDS ORDERED: Mag Hydrox/Al Hydrox/Simeth 30 ML UDC PO PRN (09:32)
[2021-12-20] MEDS ORDERED: MOM Conc 10 ML UD.LIQ PO PRN (09:32)
[2021-12-20 09:42] VITALS: BP 122/75; PULSE 88; TEMP 98.3; O2SAT 98
== END 2021-12-20 13:37 | disposition home or self-care (01) ==
LOC: EMEROOARM 17:28 → 1ANU 20:19 → INTOOBSV 20:19 → 1ANU 21:24
PROVIDERS: ADMIT Psychiatry & Neurology Psychiatry; ATTEND Psychiatry & Neurology Psychiatry

== ENCOUNTER 2022-02-17 18:31 | Observation (INO) ==
[2022-02-17 21:32] LABS: Influenza A PCR Negative (Negative); Influenza B PCR Negative (Negative); Resp. Syncytial Virus PCR Negative (Negative)
[2022-02-17 21:33] LABS: SARS-CoV-2 by PCR (In House) Negative (Negative)
[2022-02-17] MEDS ORDERED: Mag Hydrox/Al Hydrox/Simeth 30 ML UDC PO PRN (22:00)
[2022-02-17] MEDS ORDERED: *HR* LORazepam 2 MG/ML VIAL IM PRN (22:00)
[2022-02-17] MEDS ORDERED: Haloperidol Lactate 5 MG/ML VIAL IM PRN (22:00)
[2022-02-17] MEDS ORDERED: haloperidoL 5 MG TABLET PO PRN (22:00)
[2022-02-17] MEDS ORDERED: traZODone 50 MG TABLET PO PRN (22:00)
[2022-02-17] MEDS ORDERED: MOM Conc 10 ML UD.LIQ PO PRN (22:00)
[2022-02-17] MEDS ORDERED: *HR* LORazepam 1 MG TABLET PO PRN (22:00)
[2022-02-17] MEDS ORDERED: Ibuprofen 400 MG TABLET PO PRN (22:00)
[2022-02-17] MEDS ORDERED: hydrOXYzine pamoate 25 MG CAPSULE PO PRN (22:00)
[2022-02-17 23:49] VITALS: TEMP 98.7
[2022-02-18] MEDS ORDERED: Nitrofurantoin (BID) 100 MG CAPSULE PO SCH (08:00)
[2022-02-18 08:54] VITALS: BP 105/72; PULSE 98; O2SAT 98
[2022-02-18] MEDS ORDERED: Vitamin B Complex/Vit C/Vit E 1 EACH TABLET PO SCH (09:00)
== END 2022-02-18 13:30 | disposition home or self-care (01) ==
LOC: EMEROOARM 18:31 → 1ANU 21:46 → INTOOBSV 21:46 → 1ANU 23:10
PROVIDERS: ADMIT Psychiatry & Neurology Psychiatry; ATTEND Psychiatry & Neurology Psychiatry